=== PATIENT | female | born 1950 | race Caucasian/White ===

== ENCOUNTER 2024-03-15 17:52 | Inpatient (IN) | payer OTHER, SELFPAY ==
[2024-03-15 13:44] VITALS: BP 169/78
[2024-03-15 14:05] LABS: % Basophils 0.5 % (0-2); % Eosinophils 2.5 % (0-6); % Immature Granulocytes 0.8 % (0-0.5); % Lymphocytes 23.5 % (20.5-51.1); % Monocytes 10.9 % (1.7-9.3); % Neutrophils 61.8 % (42.2-75.2); Absolute Basophils 0.1 10^3/uL (0-0.2); Absolute Eosinophils 0.2 10^3/uL (0-0.7); Absolute Immature Granulocytes 0.1 10^3/uL (0-0.05); Absolute Lymphocytes 2.3 10^3/uL (1.2-3.4); Absolute Monocytes 1.1 10^3/uL (0.1-0.6); Hematocrit 31.5 % (37.0-47.0); Hemoglobin 10.6 g/dL (12.0-16.0); Mean Corp Hgb Conc. 33.7 g/dL (33.0-37.0); Mean Corpuscular Hgb 27.7 pg (27.0-31.0); Mean Corpuscular Volume 82.5 fL (81.0-99.0); Mean Platelet Volume 9.6 fL (7.4-10.4); Nucleated Red Blood Cells % 0 %; Platelet Count 265 10^3/uL (130-400); Red Blood Cell Count 3.82 10^6/uL (4.20-5.40); Red Cell Dist. Width 13.4 % (11.5-14.5); White Blood Cell Count 9.6 10^3/uL (4.8-10.8)
[2024-03-15 14:20] LABS: ALT (SGPT) 20 U/L (0-35); AST (SGOT) 23 U/L (14-36); Albumin 4.5 g/dl (3.5-5.0); Alkaline Phosphatase 122 U/L (38-126); Blood Urea Nitrogen 27 mg/dl (7-17); Calcium 11.2 mg/dl (8.4-10.2); Carbon Dioxide 28 mmol/L (22-30); Chloride 101 mmol/L (98-107); Glucose 110 mg/dl (70-99); Potassium 5.2 mmol/L (3.5-5.1); Sodium 140 mmol/L (135-145); Total Bilirubin 0.5 mg/dl (0.2-1.3); eGFR > 60.00
--- NOTE | 2024-03-15 16:57 | ED.GENMED ---
History of Present Illness
General
Chief Complaint: Skin Problem
Source: patient and physician
Time Seen by Provider: 03/15/24 16:04
History of Present Illness
History of Present Illness:
73-year-old female with past medical history of CABG secondary to CAD, hypertension, peripheral vascular disease and chronic lymphedema presenting to the emergency department from [facility] for admission for IV antibiotics due to failed
outpatient treatment for right lower extremity cellulitis. Patient notes that symptoms initially improved with doxycycline however over the last few days erythema has returned accompanied with some mild pain. Patient states she does not have any
worsening edema past her baseline. While at [facility] today was recommended she come to the ER for IV antibiotics to treat her cellulitis patient notes that she was at [facility] a little over a week ago and had an ultrasound for
the edema which was negative for DVT. Patient has no other concerns at this time.
Past History
Past History
ED Past Medical History: CAD, Cancer (Melanoma), HTN and Other (Peripheral vascular disease)
ED Past Surgical History: Cardiac, Cholecystectomy and
Social History
Tobacco: Non-smoker
Alcohol: Occasional
Drug: None
Personal:
Living: alone
Review of Systems
Review of Systems
All Other Systems: ROS reviewed and negative except as documented in HPI and ROS
Phy Exam
Physical Exam
Physical Exam:
GENERAL: Alert , in no apparent distress
EYE: clear conjunctiva
NECK: Supple
ENT: mmm.
CARDIAC: Regular rate and rhythm .
LUNGS: Clear breath sounds bilaterally, no acute respiratory distress, no wheezes/rales/rhonchi
NEUROLOGICAL: Alert and oriented
SKIN: Warm and dry, near circumferential erythema to the right lower extremity below the knee. There are 2 punctate wounds to the anterior tibia with moderate yellow weeping.
MUSCULOSKELETAL: Significant bilateral lower extremity edema to the knees is baseline per patient. Cap refill is less than 2 seconds. Sensation grossly intact to light touch
PSYCH: Normal and appropriate interaction.
Scores
Heart Failure Risk
Heart Failure Risk Score: Not Applicable
Heart Score for Chest Pain Patients
STEMI patient?: Not applicable
Withdrawal Assessment of Alcohol
Withdrawal Assessment Completed?: Not applicable
Course
Orders/Labs/Results
Orders:
Orders
03/15/24 13:55
CBC/With Diff [Complete Blood Count/With Diff] Urgent
Comprehensive Metabolic Panel Urgent
03/15/24 16:54
Piperacillin/Tazo 3.375 Gram [Zosyn] 3.375 gram in 50 ml IV NOW
Vancomycin [Vancocin] 2,000 mg 0.9% Sodium Chloride 500 ml [Nss] 500 ml IV NOW
Abnormal Lab Results
03/15/24
13:55
RBC 3.82 L 10^6/uL
(4.20-5.40)
Hgb 10.6 L g/dL
(12.0-16.0)
Hct 31.5 L %
(37.0-47.0)
Abs Immat Gran (auto) 0.1 H 10^3/uL
(0-0.05)
Absolute Monos (auto) 1.1 H 10^3/uL
(0.1-0.6)
Immature Gran % 0.8 H %
(0-0.5)
Monocytes % 10.9 H %
(1.7-9.3)
Potassium 5.2 H mmol/L
(3.5-5.1)
BUN 27 H mg/dl
(7-17)
Glucose 110 H mg/dl
(70-99)
Calcium 11.2 H mg/dl
(8.4-10.2)
03/15/24 13:55
03/15/24 13:55
Vital Signs
Initial and Last Documented VS:
Initial Vital Signs
Temp Pulse Resp BP Pulse Ox
98.2 F 64 16 169/78 97
03/15/24 13:44 03/15/24 13:44 03/15/24 13:44 03/15/24 13:44 03/15/24 13:44
Last Documented Vital Signs
Temp Pulse Resp BP Pulse Ox
98.2 F 64 16 169/78 97
03/15/24 13:44 03/15/24 13:44 03/15/24 13:44 03/15/24 13:44 03/15/24 13:44
MDM/Problems Addressed
Differential Diagnosis Includes:
Cellulitis, peripheral vascular disease, lymphedema
MDM/Problems Addressed:
73-year-old female presenting to the emergency department for evaluation from the [facility] ultimately for admission for IV antibiotics due to failed treatment with oral antibiotics for cellulitis. Patient had been on doxycycline and notes
she did initially have relief but that symptoms restarted again. Recently had an ultrasound which was negative for DVT so I do not have suspicion for this as a diagnosis. Will initiate vancomycin and Zosyn for antibiotics as broad-spectrum.
Infectious disease can be consulted as needed. Will notify hospitalist team.
Chronic conditions affecting care: PVD
Acute Exacerbation and/or Progression of Chronic Illness: PVD
*Pulse Oximetry
Patient hypoxic: no
*Critical Care Note
Total Time (30-74mins, 75-104mins- exclusive of procedures): Not Applicable
Patient Management
Discussion with other providers: Hospitalist
Escalation/DeEscalation of care consider admission/obs:
Hospitalist team is aware and accepts for continued evaluation and treatment
ED Attending Note
-
Portions of this chart may have been created with voice recognition software.� Occasional wrong word or��sound alike� substitutions may have occurred due to the inherent limitations of voice recognition software.
Discharge Plan
Departure
Patient Disposition: Admit
Date of Disposition: 03/15/24
Time of Disposition: 16:57
Presentation/result/management discussed w/ accepting MD/DO: Hospitalist
Discharge Problem:
Cellulitis of leg, right, Lymphedema
Referrals:
Nate Kim MD [Family Provider] -
Interventions
Interventions:
*Risk Screen - Suicide Last Done: 03/15/24 13:44
*General Assessment Last Done: 03/15/24 13:44
*Neglect/Abuse Screening Last Done: 03/15/24 13:44
Discharge Date and Time
Print Language: KITTITIAN
--- NOTE | 2024-03-15 16:58 | HPS.HSE ---
Family Physician
-
Family Physician: Nate Kim
Chief Complaint
-
Right lower extremities wound
History of Present Illness
73-year-old with past medical history for coronary artery disease status post coronary artery bypass graft, hyperlipidemia, congestive heart failure, hypertension, lymphedema presented to us with right lower extremity wound. Patient noted right
lower extremity wound 2 weeks ago. Patient was started on doxycycline for 14 days. She carries a course of antibiotic. Patient stated no improvement. She noticed yellowish pussy drainage. She was evaluated at wound care today. They sent her to
the ER. Patient denied any headache, dizziness, syncopal episode. Patient denied any fever, chills, chest pain, short of breath. Patient denied any abdominal pain, nausea, vomiting, diarrhea. Patient denied dysuria hematuria.
Patient received Vanco and Zosyn in the ER. Admitting for further management
Medical History
Past Medical History
Past Medical History: Reports Other
Additional Past Medical History:
Sleep apnea
High cholesterol
Lymphedema
DVT
Skin cancer
Past Surgical History: Reports Other
Additional Past Surgical History:
Triple bypass
Cholecystectomy
Skin cancer removed
Social History
Tobacco: Non-smoker
Alcohol: None
Drug: None
Living: With Family
Family History
Family History: Not pertinent
Allergies / Home Medications
Allergies reflects when Allergies were last updated in [facility].
Home Medications with original date entered in [facility]
Allergy/Medication List:
Allergies
Allergy/AdvReac Type Severity Reaction Status Date / Time
acetaminophen [From Percocet] Allergy Mild Nausea Verified 03/15/24 13:43
codeine Allergy Mild Nausea Verified 03/15/24 13:43
oxycodone [From Percocet] Allergy Mild Nausea Verified 03/15/24 13:43
steroids Allergy Unknown Uncoded 03/15/24 13:43
Home Medications
aspirin 81 mg tablet,delayed release 81 mg PO DAILY 03/15/24
atorvastatin 20 mg tablet 20 mg PO HS 03/15/24
cholecalciferol (vitamin D3) 50 mcg (2,000 unit) tablet (Vitamin D3) 50 mcg PO DAILY 03/15/24
eplerenone 50 mg tablet 50 mg PO DAILY 03/15/24
ezetimibe 10 mg tablet 10 mg PO HS 03/15/24
furosemide 40 mg tablet (Lasix) 40 mg PO DAILY 03/15/24
ibuprofen 400 mg tablet 400 mg PO Q6HPRN PRN mild pain 03/15/24
labetalol 200 mg tablet 200 mg PO BID 03/15/24
nystatin 100,000 unit/gram topical powder 1 applic topical BIDPRN PRN rash 03/15/24
omega-3 acid ethyl esters 1 gram capsule 1 g PO HS 03/15/24
ramipril 10 mg capsule 10 mg PO BID 03/15/24
Review of Systems
-
Constitutional: Reports No Symptoms
EENT: Reports No Symptoms
Respiratory: Reports No Symptoms
Cardiac: Reports No Symptoms
Abdomen/GI: Reports No Symptoms
: Reports No Symptoms
Musculoskeletal: Reports No Symptoms and Edema (Bilateral lower extremities chronic lymphedema)
Skin: Reports Other (Right lower extremity wound)
Neurological: Reports No Symptoms
Endocrine: Reports No Symptoms
Hematologic/Lymphatic: Reports No Symptoms
Psych: Reports No Symptoms
Physical Exam
Vital Signs
Vital Signs
Temp Pulse Resp BP Pulse Ox
98.2 F 64 16 169/78 97
03/15/24 13:44 03/15/24 13:44 03/15/24 13:44 03/15/24 13:44 03/15/24 13:44
Physical Exam
General: Well Developed, Well Nourished and No Apparent Distress
HEENT: NormoCephalic, Moist mucous membranes and Atraumatic
Respiratory: Clear
Cardiac: S1/S2 and Regular Rhythm; No Murmur or Rub
GI: Soft, Non Tender, Non Distended and Normal Bowel Sounds; No Organomegaly
Rectal: Deferred by Provider
Musculoskeletal: No Clubbing, No Cyanosis, No Edema and Other (Bilateral lower extremity lymphedema)
Skin: Rash and Other (Right lower extremities, red, [id number])
Neuro: AO x 3 and Nonfocal/grossly intact
Psych: Calm
Laboratory Results
-
03/15/24 13:55
03/15/24 13:55
Laboratory Results
Total Bilirubin 0.5 mg/dl (0.2-1.3) 03/15/24 13:55
AST 23 U/L (14-36) 03/15/24 13:55
ALT 20 U/L (0-35) 03/15/24 13:55
Alkaline Phosphatase 122 U/L (38-126) 03/15/24 13:55
Data Reviewed
-
Lab Data: Labs Reviewed by me
Impression/Plan
-
# Right lower extremity cellulitis
# Chronic lymphedema
-Failed outpatient antibiotic
-Received Vanco and Zosyn in ER
-Continue with IV Ancef
-US of LE
-ID consult
-Wound care consulted
# Normocytic anemia
-Hemoglobin 10.6
-No active bleeding
-Obtain iron, TIBC, B12, folate
# Hyperkalemia/hypercalcemia
-K5.2, calcium 11.2
-Continue to monitor
-potassium restricted diet.
# History of coronary artery disease
-Status post CABG
-Aspirin, statin continued
# History of congestive heart failure
-Lasix and eplerenone continued
-Strict RADHA, daily weight, fluid restriction
# Hyperlipidemia
-Zetia and statin continued
# Essential hypertension
-Labetalol and ramipril continued with hold parameter
# DVT prophylaxis
-Heparin subcu
#CODE STATUS
-Full code
--- NOTE | 2024-03-15 17:14 | W.PN.UPDATE ---
Update Note
Progress Note Update
This note serves as an addendum to the H&P by heating equipment installer HARRY Helena HARMON
HPI
73F HX chronic lymphedema, sent to ER from [facility] center for failed OP ABx indicated for Rt UMANG cellulitis
First visit to [facility] today
PHX
HTN
PVD/ poor circulation
CAD, s/p CABG
Melanoma, Moh' surgery
Cholecystectomy
C Section x 3
Reviewed VS: Afebrile , stable VSS
PE
Gen: Not toxic looking
HEENT: aniceric
Neck: supple
Lungs: CTA
Cor: RRR S1 S2
Abdomen: soft NT NG NRT
HOST/HOSTESS HEAD: AAO3, NFND
MS: b/l large leg edema with HX vein harvested for CABG . Warm, erythema especialy on Rt Umang with 2 open wound with ywllow pus exudate
Psych: Appropriate
Data
Laboratory Tests
03/15/24
13:55
WBC 9.6
Hgb 10.6 L
Potassium 5.2 H
BUN 27 H
Creatinine 0.8
eGFR > 60.00
Glucose 110 H
Calcium 11.2 H
No prior hospitalist admission to
ASSESSMENT & PLAN
Failed OP ABx indicated for Rt UMANG cellulitis
S/p completion of PO Doxycycline total 14 doses
Afebrile. Nl WCC
HX chronic lymphedema
No prior MRSA screen boogie and amicro data
Of note; First visit to [facility] today
- IV Ancef in place of Vancomycin
- B/L Leg US
- Wd care consult
- ID consult in AM
Hyperkalemia
- cont Frusemide
- cont Ramipril
- DC Ibuprofen
- Observe K in AM
HX CABG , CAD
PSHX of s/p harvested Umang veins for CABG
DVT Px: LMWH
Code: Full
IP MS
[2024-03-15 17:59] LABS: Iron 66 ug/dl (37-170)
[2024-03-15 18:09] LABS: Percent Saturation 17 % (20-50); Total Iron Binding Capacity 367 ug/dl (265-497)
[2024-03-15 18:48] LABS: Ferritin 63.3 ng/ml (11.1-264.0)
[2024-03-15 19:19] LABS: Folate 9.7 ng/ml (2.76-20); Vitamin B12 250 pg/ml (239-931)
--- NOTE | 2024-03-15 19:30 | PTCARENOTE ---
Pt received from ED at 1915. Pt pleasant, AAOX3, VSS, absent of pain, and able to walk into room with walker. Pt receptive to room and call dennis. Pt bed in lowest position and call dennis within reach. Pt informed of importance of call dennis use, pt
relays understanding and cooperation. Will continue with current plan of care.
[2024-03-15 19:35] VITALS: BP 114/79; BMI 35.7
[2024-03-15] MEDS: ALTACE 10 MG PO (20:16)
[2024-03-15] MEDS: HEPARIN 5000 UNITS SC (20:17)
[2024-03-15] MEDS: TRANDATE 200 MG PO (20:18)
[2024-03-15] MEDS: ANCEF 5 IV (20:18)
[2024-03-15] MEDS: ZETIA 10 MG PO (22:24)
[2024-03-15] MEDS: LIPITOR 20 MG PO (22:24)
[2024-03-15 23:30] VITALS: BP 105/52
[2024-03-16] MEDS: ANCEF 5 IV ×2 (03:01→11:19)
[2024-03-16 07:33] LABS: Hematocrit 28.3 % (37.0-47.0); Hemoglobin 9.4 g/dL (12.0-16.0); Mean Corp Hgb Conc. 33.2 g/dL (33.0-37.0); Mean Corpuscular Hgb 28.8 pg (27.0-31.0); Mean Corpuscular Volume 86.8 fL (81.0-99.0); Mean Platelet Volume 10.7 fL (7.4-10.4); Platelet Count 213 10^3/uL (130-400); Red Blood Cell Count 3.26 10^6/uL (4.20-5.40); Red Cell Dist. Width 13.6 % (11.5-14.5); White Blood Cell Count 7.5 10^3/uL (4.8-10.8)
[2024-03-16 07:34] VITALS: BP 111/50
[2024-03-16 08:08] LABS: Blood Urea Nitrogen 18 mg/dl (7-17); Calcium 10.1 mg/dl (8.4-10.2); Carbon Dioxide 25 mmol/L (22-30); Chloride 106 mmol/L (98-107); Estimated Creatinine Clearance 81 ml/min; Glucose 92 mg/dl (70-99); Potassium 4.1 mmol/L (3.5-5.1); Sodium 142 mmol/L (135-145); eGFR > 60.00
[2024-03-16] MEDS: ALTACE 10 MG PO ×2 (09:48→20:05)
[2024-03-16] MEDS: HEPARIN 5000 UNITS SC ×2 (09:48→20:05)
[2024-03-16] MEDS: TRANDATE 200 MG PO ×2 (09:49→20:05)
[2024-03-16] MEDS: ASPIR LOW (ENTERIC COATED) 81 MG PO (09:49)
[2024-03-16] MEDS: INSPRA 50 MG PO (09:49)
[2024-03-16] MEDS: LASIX 40 MG PO (09:50)
--- NOTE | 2024-03-16 11:16 | CON.ID ---
Consultation
-
Date/Time Consultation Requested: 03/15/24 18:58
Date/Time Consultation Performed: 03/16/24 11:17
Requesting Provider: Nilson obando
Performing Provider: Nicky DONALDSON
Reason for Consultation: Right lower extremities wound
Chief Complaint / Past History
Chief Complaint
Right lower extremities wound
History of Present Illness
Ms Nunez is a 73 year old male with history of chronic, uncontrolled lymphedema, melanoma of the RLE s/p resection, CAD s/p CABG with bilateral vein harvest (per patient). About two weeks ago she noted a new wound on the right leg a few inches
below the tibia plateau and she has been following with wound care. She is unsure if this wound is in the same location as previous melanoma or not. Reports no specific trauma to the area. The previous melanoma surgical sites fully healed. She
recently completed 7 days (14 pills not days) of doxycycline for cellulitis of the leg. The leg is quite swollen 'the worst its ever been,' and mildly red, the skin is dry but not pruritic or painful. No fevers or chills
Since arrival here she has been afebrile, bp stable, wbc initially 9.6 now 7.5, hgb 9.4, no left shift on arrival, eos were present, cr 0.6, K initially 5.2 now 4.1, no blood cultures done and not needed. Patient initially on vancomycin and zosyn,
now on vancomycin alone. ID is consulted for assistance with management.
Past History
Additional Past Medical History:
Sleep apnea
High cholesterol
Lymphedema
DVT
Skin cancer
Additional Past Surgical History:
melanoma resection x2 RLE
Allergy History:
acetaminophen [From Percocet] Allergy (Mild, Verified 03/15/24 13:43)
Nausea
codeine Allergy (Mild, Verified 03/15/24 13:43)
Nausea
oxycodone [From Percocet] Allergy (Mild, Verified 03/15/24 13:43)
Nausea
steroids Allergy (Uncoded 03/15/24 13:43)
Unknown
Medications Reviewed: Yes
Social History
Tobacco: Non-Smoker
Alcohol: None
Drug: None
Family History
Family History: Not Pertinent
Review of Systems
Review of Systems
General: Negative Fever or Chills
All systems: All other systems were reviewed and were negative
Vital Signs
Temp Pulse Resp BP Pulse Ox
97.9 F 73 17 144/80 95
03/15/24 23:30 03/16/24 09:50 03/16/24 07:34 03/16/24 09:50 03/16/24 07:34
Physical Exam
Physical Exam
Constitutional: No Acute Distress
Cardiovascular: Regular Rate and S1/S2; Negative Murmur or Rub
Pulmonary: Clear and Symmetric; Negative Wheezes, Rales or Rhonchi
Gastrointestinal: Soft, Non Tender, Non Distended and Normal Bowel Sounds
Extremities: Other (2+ lymphedema with chronic lichenification of the bilateral lower extremities; superficial wound on the RLE below the tibial plateau with slough, no surrounding erythema or warmth; distal leg dry, edematous, pink)
Skin: Warm and Dry; Negative Rash or Jaundice
Lab / Diagnostic Study Results
03/16/24 04:52
03/16/24 04:52
Abs Immat Gran (auto) 0.1 10^3/uL (0-0.05) H 03/15/24 13:55
Absolute Neuts (auto) 6.0 10^3/uL (1.4-6.5) 03/15/24 13:55
Absolute Lymphs (auto) 2.3 10^3/uL (1.2-3.4) 03/15/24 13:55
Absolute Monos (auto) 1.1 10^3/uL (0.1-0.6) H 03/15/24 13:55
Absolute Basos (auto) 0.1 10^3/uL (0-0.2) 03/15/24 13:55
Immature Gran % 0.8 % (0-0.5) H 03/15/24 13:55
Neutrophils % 61.8 % (42.2-75.2) 03/15/24 13:55
Lymphocytes % 23.5 % (20.5-51.1) 03/15/24 13:55
Monocytes % 10.9 % (1.7-9.3) H 03/15/24 13:55
Eosinophils % 2.5 % (0-6) 03/15/24 13:55
Basophils % 0.5 % (0-2) 03/15/24 13:55
Assessment / Plan
Uncontrolled Lymphedema
Venous Stasis dermatitis R >L
H/o Melanoma IL leg
H/o vein graft harvest IL leg
Xerosis
- control of lymphedema is the main issue, compression, elevation and home SCDs - reports she has the devices but has stopped using the SCDs 'its a lot of work'
- unfortunately no curative therapy for lymphedema available, however management of lymphedema may facilitate wound healing and decrease overall risk of cellulitis
- compression, elevation and lotion recommended
- continue to follow up with wound care
- fine to try 5 day course of keflex, I am skeptical that antibiotics alone will resolve the erythema, if lymphedema not controlled it will likely persist
- follow up with pcp
Care Review
Plan reviewed with: Physician (Dr Vasquez - venous stasis dermatitis)
[2024-03-16 11:36] VITALS: BP 123/59
--- NOTE | 2024-03-16 11:39 | W.PN.HOSP.TC ---
Today's Communication/Plan
-
ID recs
vanc till ID eval
start b12
PT/OT
Wound care
Assessment / Plan
Assessment / Plan
# Right lower extremity cellulitis with purulent drainage
# Chronic lymphedema
-Failed outpatient antibiotic
-with purulent drainage -IV vancomycin for now.
-US of LE negative for DVT
-ID consult for further antibiotics management
-Wound care consulted
-Did have melanoma resection at [facility] similar spot with drainage earlier this year. Denies any trauma.
# Normocytic anemia
-Hemoglobin 9.4
-No active bleeding
-low B12 and started supplementation
# Hyperkalemia/hypercalcemia
-resolved
-Continue to monitor
# History of coronary artery disease
-Status post CABG
-Aspirin, statin continued
# History of congestive heart failure
-Lasix and eplerenone continued
-Strict RADHA, daily weight, fluid restriction
# Hyperlipidemia
-Zetia and statin continued
# Essential hypertension
-Labetalol and ramipril continued with hold parameter
# DVT prophylaxis
-Heparin subcu
#CODE STATUS
-Full code
Anticipated Discharge: > 48 hours
Subjective/Interval History
-
Date of Service: March 16, 2024
states of worsening of wound with purulent drainage
Objective Data
-
Labs:
Laboratory Results
03/16/24
04:52
WBC 7.5
Hgb 9.4 L
Hct 28.3 L
Plt Count 213
Sodium 142
Potassium 4.1
Chloride 106
Carbon Dioxide 25
BUN 18 H
Creatinine 0.6
Glucose 92
Calcium 10.1
Vital Signs:
Vital Signs
Temp Pulse Resp BP Pulse Ox
98.1 F 65 17 123/59 93
03/16/24 11:36 03/16/24 11:36 03/16/24 11:36 03/16/24 11:36 03/16/24 11:36
Physical Exam
-
General: Well Developed and No Apparent Distress
HEENT: Normocephalic, Atraumatic and Moist Mucous Membranes
Respiratory: Clear to Auscultation
Cardiac: Regular Rhythm and S1/S2; Negative Murmur, Rub or Gallop
GI: Soft, Nontender, Nondistended and Normal Bowel Sounds; Negative Organomegaly
Rectal: Deferred by Provider
Musculoskeletal: No Clubbing, No Cyanosis, Edema, Right Lower Extrem (open wound with purulent drainage) and Edema, Left Lower Extrem
Skin: Negative Rash
Neuro: Awake, AO x 3, No Motor Deficits and Nonfocal/Grossly Intact
Psych: Calm
Data Reviewed
-
Total Time Spent with Patient (in minutes): 58
--- NOTE | 2024-03-16 11:55 | WOUNDNOTE ---
RIGHT LE WOUND
--- NOTE | 2024-03-16 12:00 | PHA.VAN.IN ---
Assessment
- Previous Dosing Experience
pt did not receive Vanc in the ED per EMR
AUC Dosing Plan
- Dosing Variables
Dosing Weight (kg): 85.7
Dosing CrCl (ml/min): 81
Vd coefficient (L/kg): 0.6 (BMI ~ 36)
- Empiric Dosing
Initial / Loading Dose: 1000 mg x 1 dose ~ 1200 03/16/24 ( adm pending)
Maintenance Regimen: 1000 mg q12h - next dose 1800 today ( in lieu of LD)
Estimated AUC (mcg*h/mL): 562
Estimated Peak (mcg*h/mL): 33.7
Estimated Trough (mcg/ml): 15.3
Estimated Half Life (H): 9.7
- Monitoring
No levels ordered at this time: consider levels after 4th dose Sat harrison if still on
Pharmacokinetics Vancomycin I
- -
Patient Age: 73
Patient Sex: Female
Vancomycin Day #: 1
Indication: Skin And Soft Tissue
Requesting Provider: Christina
Pertinent Antimicrobial Allergies:
perocet,codeine, steroids
Height / Weight:
Height 5 ft 1 in
Actual Weight 85.729 kg
Pertinent Past Medical History: LE wound on outpt doxy x 14 days w/no improvement
- Vital Signs / Lab Results
Temp Pulse Resp BP Pulse Ox
98.1 F 65 17 123/59 93
03/16/24 11:36 03/16/24 11:36 03/16/24 11:36 03/16/24 11:36 03/16/24 11:36
Lab Results - Hematology
03/15/24 03/16/24
13:55 04:52
WBC 9.6 7.5
Lab Results - Chemistry
03/15/24 03/16/24
13:55 04:52
BUN 27 H 18 H
Creatinine 0.8 0.6
Estimated Creat Clear 81
Albumin 4.5
--- NOTE | 2024-03-16 12:08 | WOUNDNOTE ---
[facility] RN note: Patient admitted with right LE cellulitis with open wound
See H&P for complete history.
PMH: CAD, CHF, lymphedema, HTN, hyperlipidemia.
Wound Location and type/assessment: Patient admitted with right leg open wound with necrotic yellow slough and moderate amount of serous drainage. She was previously treated with oral antibiotics from her primary. Dr. Boyd from [facility] sent her
to ER yesterday after assessing wound. Patient reports she has had the wound just prior to Day. Dr. Saunders was also present for wound assessment. She follows at a lymphedema clinic in her area and wears compression 23 hours/day. She is able
to turn in bed with some assistance and states she ambulates with walker at home.
Appetite: Good
Pressure redistribution devices in place: Versa Care with Accumax, Heels off-loaded with pillow or air cushion under calves.
Plan: Local wound care provided as ordered. Compression ordered with KEELY wraps and patient will use own compression when it arrives from home. Skin prep and protective foam applied to heels.
Will confirm orders with hospitalist and update nurse.
Updated care plan and will follow as needed.
Note to case management of equipment requested for discharge:
Recommend follow up at wound care center upon discharge.
[2024-03-16 13:03] VITALS: BP 129/65; PULSE 71
[2024-03-16] MEDS: VANCOCIN 200 IV (13:20)
[2024-03-16] MEDS: KEFLEX 500 MG PO ×3 (13:20→21:17)
[2024-03-16] MEDS: VITAMIN B-12 1000 MCG PO (13:20)
[2024-03-16 15:03] VITALS: BP 118/57
[2024-03-16 19:26] VITALS: BP 159/72
[2024-03-16] MEDS: LIPITOR 20 MG PO (21:17)
[2024-03-16] MEDS: ZETIA 10 MG PO (21:17)
[2024-03-16 23:02] VITALS: BP 117/59
[2024-03-17 03:20] VITALS: BP 153/72
[2024-03-17 05:59] VITALS: BMI 34.1
[2024-03-17 06:52] LABS: Hematocrit 28.2 % (37.0-47.0); Hemoglobin 9.4 g/dL (12.0-16.0); Mean Corp Hgb Conc. 33.3 g/dL (33.0-37.0); Mean Corpuscular Hgb 27.9 pg (27.0-31.0); Mean Corpuscular Volume 83.7 fL (81.0-99.0); Mean Platelet Volume 10.2 fL (7.4-10.4); Platelet Count 197 10^3/uL (130-400); Red Blood Cell Count 3.37 10^6/uL (4.20-5.40); Red Cell Dist. Width 13.3 % (11.5-14.5); White Blood Cell Count 9.2 10^3/uL (4.8-10.8)
[2024-03-17 07:15] VITALS: BP 150/66
[2024-03-17 07:23] LABS: Blood Urea Nitrogen 13 mg/dl (7-17); Calcium 10.2 mg/dl (8.4-10.2); Carbon Dioxide 24 mmol/L (22-30); Chloride 107 mmol/L (98-107); Estimated Creatinine Clearance 79 ml/min; Glucose 100 mg/dl (70-99); Potassium 3.7 mmol/L (3.5-5.1); Sodium 142 mmol/L (135-145); eGFR > 60.00
[2024-03-17] MEDS: KEFLEX 500 MG PO ×2 (08:19→12:08)
[2024-03-17] MEDS: TRANDATE 200 MG PO (08:19)
[2024-03-17] MEDS: ASPIR LOW (ENTERIC COATED) 81 MG PO (08:19)
[2024-03-17] MEDS: INSPRA 50 MG PO (08:19)
[2024-03-17] MEDS: ALTACE 10 MG PO (08:19)
[2024-03-17] MEDS: VITAMIN B-12 1000 MCG PO (08:20)
[2024-03-17] MEDS: HEPARIN 5000 UNITS SC (08:20)
[2024-03-17] MEDS: LASIX 40 MG PO (08:20)
--- NOTE | 2024-03-17 10:13 | CM ---
manager payroll reviewed patient's chart and met with patient and patient states that he son and daughter in law live with her in a 2 story home, 1st floor set up, patient is independent with adl's and uses a walker with ambulation, patient states she
was recently referred to wound care center, plan is to home with visiting nurses, options reviewed with patient and patient has selected [facility], referral sent to [facility].
[facility]
PCP: Dr. Kim
Plan; Home with [facility], AD information provided to patient.
--- NOTE | 2024-03-17 11:23 | W.PN.HOSP.TC ---
Today's Communication/Plan
-
dec labetalol
po keflex
OP wound care f/u
Assessment / Plan
Assessment / Plan
# Right lower extremity erythema due to venous stasis dermatitis
# Chronic lymphedema
-Failed outpatient antibiotic
-with purulent drainage -IV vancomycin for now and now transitioned to keflex
-US of LE negative for DVT
-ID consult for further antibiotics management
-Wound care consulted
-Did have melanoma resection at [facility] similar spot with drainage earlier this year. Denies any trauma.
# Normocytic anemia
-Hemoglobin 9.4
-No active bleeding
-low B12 and started supplementation
# Hyperkalemia/hypercalcemia
-resolved
-Continue to monitor
# History of coronary artery disease
-Status post CABG
-Aspirin, statin continued
# History of congestive heart failure
-Lasix and eplerenone continued
-Strict RADHA, daily weight, fluid restriction
# Hyperlipidemia
-Zetia and statin continued
# Essential hypertension
-Labetalol and ramipril continued with hold parameter
-Episode of bradycardia and will decrease labetalol to 100mg BID from 200mg BID
-OP cards/ pcp f/u
# DVT prophylaxis
-Heparin subcu
#CODE STATUS
-Full code
More than 30 minutes spent in discharge including
Final examination of the patient
Summarizing hospital stay
Instructions for continuing care to all relevant caregivers
Preparation of discharge records, prescriptions, and referral forms
Total time spent (in minutes): 58
Anticipated Discharge: Today
Subjective/Interval History
-
Date of Service: March 17, 2024
tolerating diet
remains afebrile
Objective Data
-
Labs:
Laboratory Results
03/17/24
06:37
WBC 9.2
Hgb 9.4 L
Hct 28.2 L
Plt Count 197
Sodium 142
Potassium 3.7
Chloride 107
Carbon Dioxide 24
BUN 13
Creatinine 0.6
Glucose 100 H
Calcium 10.2
Vital Signs:
Vital Signs
Temp Pulse Resp BP Pulse Ox
98.5 F 62 16 150/66 95
03/17/24 07:15 03/17/24 08:19 03/17/24 07:15 03/17/24 08:19 03/17/24 07:15
I&O
03/16/24 03/17/24 03/18/24
06:59 06:59 06:59
Intake Total 480 / 480
Balance 480 / 480
Physical Exam
-
General: Well Developed and No Apparent Distress
HEENT: Normocephalic, Atraumatic and Moist Mucous Membranes
Respiratory: Clear to Auscultation
Cardiac: Regular Rhythm and S1/S2; Negative Murmur, Rub or Gallop
GI: Soft, Nontender, Nondistended and Normal Bowel Sounds; Negative Organomegaly
Rectal: Deferred by Provider
Musculoskeletal: No Clubbing, No Cyanosis, Edema, Right Lower Extrem (open wound with purulent drainage) and Edema, Left Lower Extrem
Skin: Negative Rash
Neuro: Awake, AO x 3, No Motor Deficits and Nonfocal/Grossly Intact
Psych: Calm
--- NOTE | 2024-03-17 11:28 | W.DCSUMMARY ---
Discharge Summary
Discharge Data
Date of Admission: 03/15/24
Date of Discharge: 03/17/24
-
Pending Results: No
Hospital Course
73 female past medical history of CAD status post CABG, CHF, hyperlipidemia, hypertension, chronic lymphedema is presenting from wound care center with worsening of wound. Patient was started on broad-spectrum antibiotics. Lower extremity Doppler
was negative for DVT. Wound care was consulted infectious disease was consulted. Per infectious disease with worsening of venous stasis dermatitis and IV antibiotics were discontinued. Patient was started on p.o. Keflex. Wound care was
recommended. Patient was recommended to follow-up closely with wound care center at [facility] or [facility]. Patient be discharged home with p.o. Keflex. Patient was also found to have intermittent bradycardia and labetalol dose
was decreased to 100 mg twice daily. Heart rate and blood pressure was stable on discharge.
Discharge Plan
-
Patient Disposition: Home with Home Care
Discharge Diagnosis/Procedures: Bilateral lyphmedema
Bilateral Venous stasis dermatitis with wound on Right leg
Anemia with B12 deficiency
Bradycardia secondary to labetalol
Condition: Fair
Diet: Low Cholesterol and Restrict fluids to 48 oz
Activity: With assistance and As tolerated
Driving Restrictions: As prior to admission
Other Services: VN
Activity Restrictions/Additional Instructions:
Wound Care Instructions RIGHT LOWER LEG WOUND- Clean with Vashe moistened gauze for 5 minutes. Apply alginate over yellow, draining areas and cover with silicone border foam or other dry dressing. Change daily and PRN for drainage.
Resume lymphedema care at home
Follow up at wound care center call for an appointment.
Referrals:
Nate Kim MD [Family Provider] - in less than 1 week (Follow-up with primary doctor is labetalol dose adjusted for bradycardia and blood pressure management. )
[facility] - in one to two weeks
Prescriptions:
New
cyanocobalamin (vitamin B-12) 1,000 mcg Tablet
1,000 mcg PO DAILY 30 Days Qty: 30 0RF
cephalexin 500 mg Capsule
500 mg PO QID 4 Days Qty: 16 0RF
labetalol 100 mg tablet
100 mg PO BID Qty: 60 0RF
Continued
furosemide [Lasix] 40 mg Tablet
40 mg PO DAILY
atorvastatin 20 mg Tablet
20 mg PO HS
aspirin 81 mg Tablet,Delayed Release (Dr/Ec)
81 mg PO DAILY
nystatin 100,000 unit/gram Powder
1 applic TOPICAL BIDPRN PRN (Reason: rash)
ramipril 10 mg Capsule
10 mg PO BID
eplerenone 50 mg Tablet
50 mg PO DAILY
ezetimibe 10 mg Tablet
10 mg PO HS
omega-3 acid ethyl esters 1 gram capsule
1 g PO HS
cholecalciferol (vitamin D3) [Vitamin D3] 50 mcg (2,000 unit) Tablet
50 mcg PO DAILY
Discontinued
labetalol 200 mg Tablet
200 mg PO BID
ibuprofen 400 mg Tablet
400 mg PO Q6HPRN PRN (Reason: mild pain)
Discharge Orders:
Discharge Patient (As Directed); Ordered 03/17/24
Ordered By: Walter Vasquez
Discharge Date and Time
Discharge Date/Time: 03/17/24 13:56
Print Language: MARSHALLESE
[2024-03-17 12:45] VITALS: BP 115/59
== END 2024-03-17 13:56 | disposition home health service (06) | DRG 300 ==
LOC: 4 WEST ACU 17:52
PROVIDERS: Registered Nurse; Student in an Organized Health Care Education/Training Program; ADMITTING PHYSICIAN Internal Medicine; ATTENDING PHYSICIAN Hospitalist; CONSULT PHYSICIAN Student in an Organized Health Care Education/Training Program; EMERGENCY PHYSICIAN Emergency Medicine; FAMILY PHYSICIAN Family Medicine
DX: I87.2 Venous insufficiency (chronic) (peripheral) (principal); L97.819 Non-pressure chronic ulcer of other part of right lower leg with unspecified severity; D51.9 Vitamin B12 deficiency anemia, unspecified; I50.9 Heart failure, unspecified; I11.0 Hypertensive heart disease with heart failure; I73.9 Peripheral vascular disease, unspecified; I89.0 Lymphedema, not elsewhere classified; E87.5 Hyperkalemia; E83.52 Hypercalcemia; I25.10 Atherosclerotic heart disease of native coronary artery without angina pectoris; Z95.1 Presence of aortocoronary bypass graft; E78.5 Hyperlipidemia, unspecified; G47.30 Sleep apnea, unspecified; R00.1 Bradycardia, unspecified; Z79.82 Long term (current) use of aspirin; Z79.899 Other long term (current) drug therapy; Z88.5 Allergy status to narcotic agent; Z88.6 Allergy status to analgesic agent; Z88.8 Allergy status to other drugs, medicaments and biological substances; Z90.49 Acquired absence of other specified parts of digestive tract; Z85.828 Personal history of other malignant neoplasm of skin; Z85.820 Personal history of malignant melanoma of skin
CPT/HCPCS: 80048; 80053; 82607; 82728; 82746; 83540; 83550; 85025; 85027; 93970; 97162; 97166; 99204; 99285

== ENCOUNTER → 2024-03-26 11:28 | Outpatient (REF) | payer OTHER, SELFPAY | LOC: WOUND 11:28 | PROVIDERS: ATTENDING PHYSICIAN Surgery; FAMILY PHYSICIAN Family Medicine | DX: L97.212 Non-pressure chronic ulcer of right calf with fat layer exposed (principal); L03.115 Cellulitis of right lower limb; C43.71 Malignant melanoma of right lower limb, including hip; I89.0 Lymphedema, not elsewhere classified; I87.2 Venous insufficiency (chronic) (peripheral); C43.9 Malignant melanoma of skin, unspecified; T81.31XA Disruption of external operation (surgical) wound, not elsewhere classified, initial encounter; Y83.8 Other surgical procedures as the cause of abnormal reaction of the patient, or of later complication, without mention of misadventure at the time of the procedure | CPT/HCPCS: 11042 ==

== ENCOUNTER → 2024-04-09 10:19 | Outpatient (REF) | payer OTHER, SELFPAY | LOC: WOUND 10:19 | PROVIDERS: ATTENDING PHYSICIAN Surgery; FAMILY PHYSICIAN Family Medicine | DX: L97.212 Non-pressure chronic ulcer of right calf with fat layer exposed (principal); L03.115 Cellulitis of right lower limb; C43.71 Malignant melanoma of right lower limb, including hip; I89.0 Lymphedema, not elsewhere classified; I87.2 Venous insufficiency (chronic) (peripheral); T81.31XA Disruption of external operation (surgical) wound, not elsewhere classified, initial encounter; C43.9 Malignant melanoma of skin, unspecified; Y83.8 Other surgical procedures as the cause of abnormal reaction of the patient, or of later complication, without mention of misadventure at the time of the procedure | CPT/HCPCS: 11042 ==

== ENCOUNTER → 2024-04-23 11:00 | Outpatient (REF) | payer OTHER, SELFPAY | LOC: WOUND 11:00 | PROVIDERS: ATTENDING PHYSICIAN Surgery; FAMILY PHYSICIAN Family Medicine | DX: L97.212 Non-pressure chronic ulcer of right calf with fat layer exposed (principal); L03.115 Cellulitis of right lower limb; C43.71 Malignant melanoma of right lower limb, including hip; I89.0 Lymphedema, not elsewhere classified; I87.2 Venous insufficiency (chronic) (peripheral); T81.31XA Disruption of external operation (surgical) wound, not elsewhere classified, initial encounter; Y83.8 Other surgical procedures as the cause of abnormal reaction of the patient, or of later complication, without mention of misadventure at the time of the procedure; C43.9 Malignant melanoma of skin, unspecified | CPT/HCPCS: 11042 ==

== ENCOUNTER → 2024-05-07 10:42 | Outpatient (REF) | payer OTHER, SELFPAY | LOC: WOUND 10:42 | PROVIDERS: ATTENDING PHYSICIAN Surgery; FAMILY PHYSICIAN Family Medicine | DX: L97.212 Non-pressure chronic ulcer of right calf with fat layer exposed (principal); L03.115 Cellulitis of right lower limb; C43.71 Malignant melanoma of right lower limb, including hip; I89.0 Lymphedema, not elsewhere classified; I87.2 Venous insufficiency (chronic) (peripheral); T81.31XA Disruption of external operation (surgical) wound, not elsewhere classified, initial encounter; C43.9 Malignant melanoma of skin, unspecified; Y83.8 Other surgical procedures as the cause of abnormal reaction of the patient, or of later complication, without mention of misadventure at the time of the procedure | CPT/HCPCS: 11042 ==

== ENCOUNTER → 2024-05-21 11:13 | Outpatient (REF) | payer OTHER, SELFPAY | LOC: WOUND 11:13 | PROVIDERS: ATTENDING PHYSICIAN Surgery; FAMILY PHYSICIAN Family Medicine | DX: L97.212 Non-pressure chronic ulcer of right calf with fat layer exposed (principal); L03.115 Cellulitis of right lower limb; C43.71 Malignant melanoma of right lower limb, including hip; I89.0 Lymphedema, not elsewhere classified; I87.2 Venous insufficiency (chronic) (peripheral); T81.31XA Disruption of external operation (surgical) wound, not elsewhere classified, initial encounter; C43.9 Malignant melanoma of skin, unspecified; Y83.8 Other surgical procedures as the cause of abnormal reaction of the patient, or of later complication, without mention of misadventure at the time of the procedure | CPT/HCPCS: 99212 ==